=== PATIENT | male | born 1975 | race Caucasian/White ===

== ENCOUNTER 2016-09-22 07:10 | Emergency (ER) | payer OTHER ==
[2016-09-22 07:29] VITALS: BP 129/95; PULSE 80; RESP 18; TEMP 98.2; O2SAT 98
--- NOTE | 2016-09-22 07:47 | UCPHY ---
H & P Time Seen by Provider: 09/22/16 07:30 Patient Type: Established HPI/ROS: This patient complains of swelling and pain to the right forefoot from injury yesterday. He explains he was holding a heavy break Roter that slipped from his hands at home and fell on the dorsum of his right foot with immediate sharp in achy pain. The pain persists and makes walking difficult since the pain increases with weight-bearing. He also reports pain with flexion or extension of the toes in the right foot to the area of the forefoot dorsum. ROS: No neuro symptoms. No other injuries from the incident. 5 point ROS is otherwise negative. Smoking Status: Never smoked Physical Exam: Physical Exam Vital signs are normal. General: No acute distress Eyes: Pupils equal and react to light. Extraocular motions are intact. Lungs: No respiratory distress. Cardiac: Brisk capillary refill is intact throughout. Pulses are 2+ and symmetric in the affected extremity. Skin: No rash or pallor. Extremities: Atraumatic normal except for right foot Right foot: Patient has swelling tenderness to the dorsum right foot overlying the 2nd through 5th metatarsals Neuro: Alert and oriented x3 with no sensorimotor deficits. Initial differential diagnosis: Foot fracture versus traumatic hematoma Constitutional: Initial Vital Signs Temperature (C) 36.8 C 09/22/16 07:26 Heart Rate 80 09/22/16 07:26 Respiratory Rate 18 09/22/16 07:26 Blood Pressure 129/95 H 09/22/16 07:26 O2 Sat (%) 98 09/22/16 07:26 O2 Delivery Mode Room Air Allergies/Adverse Reactions: Penicillins Allergy (Verified 09/22/16 07:23) Home Medications: Medication Instructions Recorded NK [No Known Home Meds] 09/22/16 MDM/Departure - MDM Diagnostics: Foot x-ray: Negative for fracture by my interpretation Imaging: I viewed and interpreted images myself ED Course/Re-evaluation: Patient placed in a postop shoe. I counseled him regarding traumatic hematoma of the foot. - Depart Disposition: Home, Routine, Self-Care Clinical Impression: Traumatic hematoma of right foot Qualifiers: Encounter type: initial encounter Qualified Code(s): S90.31XA - Contusion of right foot, initial encounter Condition: Good Instructions: Hematoma (ED) Additional Instructions: Diagnosis: Traumatic hematoma of the foot Plan: Elevate the foot whenever possible Ice 20 minutes at a time 3 times a day or more until symptoms resolve Limit activity as needed until the foot heals Postop shoe when your up and about until symptoms resolve Ibuprofen or similar anti-inflammatory ("NSAID's) for symptom control. He is safe to take Tylenol as well if needed with NSAIDs If you finding not improving over the next week or so then call to the cloth mender listed below-patient transition specialist arrange follow-up appointment for further evaluation Referrals: Danette Zhang MD [Primary Care Provider] - As per Instructions Kenroy Armstrong DPM [Doctor of Podiatric Medicine] - As per Instructions - PQRS PQRS Measurement: NA
== END 2016-09-22 08:05 | disposition home or self-care (01) ==
LOC: CED 07:10
DX: S90.31XA Contusion of right foot, initial encounter (principal); W20.8XXA Other cause of strike by thrown, projected or falling object, initial encounter
CPT/HCPCS: 73630-PO; G0463-PO

== ENCOUNTER → 2018-06-24 | Outpatient (CLI) | payer OTHER | LOC: CIMAGING 14:45 | PROVIDERS: ATTEND Family Medicine | DX: M20.11 Hallux valgus (acquired), right foot (principal) | CPT/HCPCS: 73630-PO ==